=== PATIENT | female | born 1955 | race Caucasian/White ===

== ENCOUNTER 2020-03-27 09:47 | Emergency (ER) | payer BC, SELFPAY ==
--- NOTE | ~2020-03-27 | XR_ITS ---
EXAMINATION: XR wrist RT min 3V DATE: 03/27/2020 10:17 INDICATION: Right wrist pain. Fall. TECHNIQUE: 4 views of right wrist were obtained. COMPARISON: None. FINDINGS: There is a comminuted fracture of distal radius with involvement of the distal radioulnar j oint and likely involvement of the distal articular surface. The main distal fracture fragment demons trates impaction. There is 2 degrees palmar tilt of the distal articular surface. Ulnar styloid is in tact. Joint spaces are normal. IMPRESSION: 1. Comminuted fracture of distal radius. Reviewed, dictated and finalized at location A. CLOSURE HOME INSPECTOR
[2020-03-27 10:01] VITALS: BP 159/81; PULSE 74; RESP 16; TEMP 36.7; O2SAT 100
--- NOTE | 2020-03-27 10:12 | ED.GENADULT ---
HPI - General Adult General Chief complaint: Extremity Injury, Upper <Darell Soliman PA-C - Last Filed: 03/27/20 11:42> Stated complaint: wrist injury <Darell Soliman PA-C - Last Filed: 03/27/20 11:42> Time Seen by Provider: 03/27/20 10:05 <Darell Soliman PA-C - Last Filed: 03/27/20 11:42> Source: patient <Darell Soliman PA-C - Last Filed: 03/27/20 11:42> Mode of arrival: ambulatory <KAITLIN Vergara Last Filed: 03/27/20 11:42> Limitations: no limitations <KAITLIN Vergara Last Filed: 03/27/20 11:42> History of Present Illness HPI narrative: Patient presents with chief complaint of pain to the right wrist that she sustained approximately 1 hour prior to arrival when she was falling backwards out of her bed and put her arm behind her to catch herself. Patient reports pain and swelling to the radial aspect of her wrist with decreased range of motion. Patient denies any other injuries such as head impact, loss of consciousness, chest pain, back pain or any other areas of concern. Patient denies any prior fractures or injuries to the wrist. Patient denies any chronic medical conditions or daily medications. <Darell Soliman PA-C - Last Filed: 03/27/20 11:42> Related Data Home medications: Home Medications Medication Instructions Recorded Confirmed No Home Medications 03/27/20 03/27/20 <Darell Soliman PA-C - Last Filed: 03/27/20 11:42> Allergies/adverse reactions: Allergies Allergy/AdvReac Type Severity Reaction Status Date / Time Sulfa (Sulfonamide Allergy Unknown Vomiting Verified 03/27/20 10:09 Antibiotics) <Darell Soliman PA-C - Last Filed: 03/27/20 11:42> Review of Systems Review of Systems: Narrative: EYES: Denies visual changes, redness, or discharge. ENT: Denies rhinorrhea, congestion, sore throat, or otalgia. CARDIOVASCULAR: Denies chest pain, palpitations, or edema. RESPIRATORY: Denies cough or dyspnea. GASTROINTESTINAL: Denies abdominal pain, nausea, vomiting, or diarrhea. GENITOURINARY: Denies dysuria or hematuria. SKIN: Reports swelling denies erythema, ecchymosis rash or itching. MUSCULOSKELETAL: Reports right wrist pain denies back pain or myalgia. NEUROLOGIC: Denies headache, numbness, dizziness, or weakness. <Darell Soliman PA-C - Last Filed: 03/27/20 11:42> Exam Narrative: Exam Narrative: GENERAL: Well-appearing, well-nourished, and in no acute distress. HEAD: Normocephalic, No outward signs of trauma, abrasions or lacerations EYES: PERRLA and EOMI. NECK: Supple. No adenopathy or masses. Motion intact CHEST: Clear to auscultation. No respiratory distress. No wheezes rales or rhonchi HEART: Regular rate and rhythm. EXTREMITIES: Edema noted to the radial aspect of the right wrist. Decreased flexion extension and supination elicit pain. No open wounds or abrasions. Cap refill intact. No pain with palpation or range of motion proximally. No pain distally to hand. Sensation and range of motion intact to fingers. Residential Sales Associate strength intact. SKIN: Warm, dry, no rash. NEURO: No focal deficits. Alert and oriented x3. PSYCH: Normal mood and affect. <Darell Soliman PA-C - Last Filed: 03/27/20 11:42> Course Vital Signs Vital signs: Vital Signs Temperature 98.1 F 03/27/20 10:01 Pulse Rate 74 03/27/20 10:01 Respiratory Rate 16 03/27/20 10:01 Blood Pressure 159/81 H 03/27/20 10:01 Pulse Oximetry 100 03/27/20 10:01 Temperature 98.1 F 03/27/20 10:01 Pulse Rate 74 03/27/20 10:01 Respiratory Rate 16 03/27/20 10:01 Blood Pressure 159/81 H 03/27/20 10:01 Pulse Oximetry 100 03/27/20 10:01 <Darell Soliman PA-C - Last Filed: 03/27/20 11:42> Vital Signs Temperature 98.1 F 03/27/20 10:01 Pulse Rate 74 03/27/20 10:01 Respiratory Rate 16 03/27/20 10:01 Blood Pressure 159/81 H 03/27/20 10:01 Pulse Oximetry 100 03/27/20 10:01 Temperature 98.1 F 03/27/20 10:01
== END 2020-03-27 11:41 | disposition home or self-care (01) ==
PROVIDERS: Emergency Provider General Practice; PCP Internal Medicine
DX: S52.571A Other intraarticular fracture of lower end of right radius, initial encounter for closed fracture (principal); W06.XXXA Fall from bed, initial encounter
CPT/HCPCS: 29125; 73110; 99284; A4565

== ENCOUNTER 2020-04-09 09:49 | Outpatient (CLI) | payer BC, SELFPAY ==
--- NOTE | ~2020-04-09 | MM_ITS ---
EXAMINATION: MM screening torrie BI w giovana HISTORY: Screening mammogram TECHNIQUE: Craniocaudal and mediolateral oblique 3-D tomosynthesis images were obtained and synthetic 2-D images were generated. CAD analysis was submitted and interpreted. COMPARISON: 03/22/2019, 03/15/2018, 03/14/2017 bilateral digital screening mammogram examinations BREAST PARENCHYMAL COMPOSITION: The breasts are almost entirely fatty. FINDINGS: There is no evidence of suspicious mass, calcification, or architectural distortion to sugg est malignancy in either breast. There has been no suspicious interval change. IMPRESSION: 1. No mammographic evidence of malignancy. 2. Recommend routine screening mammography in one year. BI-RADS Category 1: Negative Reviewed, dictated and finalized at location A. SUPPORT ENGINEER
== END 2020-04-09 09:50 | disposition home or self-care (01) ==
LOC: ANHIMG 09:51
PROVIDERS: PCP Internal Medicine; Visit Provider Obstetrics & Gynecology
DX: Z12.31 Encounter for screening mammogram for malignant neoplasm of breast (principal)
CPT/HCPCS: 77063; 77067

== ENCOUNTER 2020-06-02 07:30 | Outpatient (RCR) | payer BC, SELFPAY ==
--- NOTE | 2020-05-19 08:46 | OTOPEVAL ---
OCCUPATIONAL THERAPY EVALUATION REPORT 05/19/20 Thank you for referring Aiyana Mcleod to [facility].? The patient is scheduled to be seen for therapy? 1x/week every 2 weeks for 2 visits total. Today she was instructed in AROM and will follow up in 2 weeks for progression to light resistive exercise. Please review, sign, date and return this plan of care MOODY. I agree with and certify that the following plan of care is medically necessary. Referring Physician Date Referring Provider: Eliezer Flores MD *OT Outpatient Evaluation Therapy Assessment Status Assessment Status Assessment Status Evaluation Outpatient Past Medical History Past Medical History No Past Medical/Surgical History Patient/Family Denies Significant Past Medical/ Surgical History Evaluation Information Problem Diagnosis (R) nondisplaced extra- articular distal radius fx Onset 03/27/20 Subjective Information Patient states the wrist was Query Text:As Reported By Patient/ treated conservatively. She Family has been weaning off her brace and has actually not been wearing it at all as of yesterday. She states she has been using her hand for all ADLs, laundry, cooking, and lifting as her arm allows. Prior Level of Function Activity Level (Last 3 Months) Hand Dominance Right Activity of Daily Living Ability Independent Indoor/Home Mobility Independent Cooking Yes Cleaning Yes Laundry Yes Shopping Yes Driving Yes Pain Assessment Timing of Pain Assessment Timing of Pain Assessment Assessment Pain Scale Pain Scale Used Numeric (1 - 10) Self Report Pain Assessment Right Wrist(s) Reported Pain Level 0 Lowest Pain Intensity 0 Greatest Pain Intensity 3 Pain Score Pain Score 0: Self Report Upper Extremity Range of Motion Scapular/ Shoulder Range of Motion Right Reason Not Measured WNL/Right Elbow/Forearm Range of Motion Right Forearm Supination - Active 75 Forearm Pronation - Active 80 Wrist Range of Motion Right Wrist Flexion - Active 60 Wrist Flexion - Passive 70 Wrist Extension - Active 60 Wrist Extension - Passive 70 Wrist Radial Deviation - Active 20 Wrist Ulnar Deviation - Active 35 Finger Range of Motion Right Reason Not Measured WNL/Right Thumb Range of Motion Right Reason Not Measured WNL/Right Hand Architectural Manager/Pinch Strength Assessment Hand Left
--- NOTE | 2020-06-02 08:24 | OTOPEVAL ---
OCCUPATIONAL THERAPY DISCHARGE NOTE 06/02/20 Aiyana presents for re-evaluation and progression of HEP. This week she is currently 10 weeks post DRF. She is independent with AROM, PROM, and resistive exercise as well as instruction in how to progress resistance over the next 2-3 weeks. No further skilled OT indicated at this time. Thank you for this referral. Thank you for referring Aiyana Mcleod to [facility].? Please review, sign, date and return this D/C Summary MOODY. I agree with and certify that the following plan of care is medically necessary. Referring Physician Date Referring Provider: Eliezer Flores MD *OT Outpatient Re-evaluation/Discharge Evaluation Information Problem Diagnosis (R) nondisplaced extra- articular distal radius fx Onset 03/27/20 Additional Evaluation Detail Aiyana presents after 2 weeks of completing AROM and PROM of the forearm and wrist as well as light resistive oil field roustabout strengthening. AROM has improved to normal limits. Today she was instructed in progression of forearm, wrist, and oil field roustabout strengthening and is independent with all materials. Subjective Information Patient states she is able to Query Text:As Reported By Patient/ complete all ADLs without Family difficulty. Reports weakness as her biggest limitation. Pain Assessment Timing of Pain Assessment Timing of Pain Assessment Re-assessment Pain Scale Pain Scale Used Numeric (1 - 10) Self Report Pain Assessment Right Wrist(s) Reported Pain Level 0 Lowest Pain Intensity 0 Greatest Pain Intensity 2 Pain Score Pain Score 0: Self Report Upper Extremity Range of Motion Elbow/Forearm Range of Motion Right Forearm Supination - Active 85 Forearm Pronation - Active 85 Wrist Range of Motion Right Wrist Flexion - Active 70 Wrist Flexion - Passive 80 Wrist Extension - Active 68 Wrist Extension - Passive 80 Wrist Radial Deviation - Active 30 Wrist Ulnar Deviation - Active 35 Finger Range of Motion Right Reason Not Measured WNL/Right Thumb Range of Motion Right Reason Not Measured WNL/Right Hand High Pressure Boiler Operator/Pinch Strength Assessment Hand Right High Pressure Boiler Operator Strength (lbs) 32.67 Upper Extremity Exercise Elbow/Forearm Exercise Right Elbow Flexion With red t-band 1x20 Query Text:Record Set, Reps, Resistance, Position. Elbow Extension With red t-band 1x20 Query Text:Record Set, Reps, Resistance, Po
== END 2020-06-02 10:29 | disposition home or self-care (01) ==
LOC: ANHOT 07:30
PROVIDERS: PCP Internal Medicine; Visit Provider Orthopaedic Surgery
DX: S52.501D Unspecified fracture of the lower end of right radius, subsequent encounter for closed fracture with routine healing (principal)
CPT/HCPCS: 97018; 97110; 97165

== ENCOUNTER 2021-02-04 13:38 | Outpatient (CLI) | payer BC, SELFPAY ==
--- NOTE | ~2021-02-04 | DEXA_ITS ---
Bone Density Report Name: Aiyana Mcleod Age: 65 Sex: Female Ethnicity: White Date of : 1955 Indication: postmenopausal; height loss; prior fracture; Referring Provider: NEFTALY, FREEDOM Terry Study: Bone densitometry was performed. Exam Date: February 04, 2021 Accession number: [id number] Bone Density: Region BMD T-score Z-score Classification AP Spine (L1, L2) 0.951 -0.3 1.4 Normal Femoral Neck (Left) 0.831 -0.2 1.3 Normal Total Hip (Left) 1.033 0.7 1.9 Normal Total Hip Bilateral Avg 0.997 0.4 1.6 Normal Femoral Neck (Right) 0.798 -0.5 1.0 Normal Total Hip (Right) 0.960 0.1 1.3 Normal World Health Organization criteria for BMD impression classify patients as: Normal (T-score at or above -1.0), Osteopenia (T-score between -1.0 and -2.5), or Osteoporosis (T-score at or below -2.5). 10-year Fracture Risk: FRAX not reported because: All T-scores for Spine Total, Hip Total, Femoral Neck at or above -1.0 Clinical Information Provided by Patient: Has had a low trauma fracture Has used the following medications: Vitamin D Patient maximum height was 62 Menopause Age: 50 Drinks caffeinated beverages Onset of menses at age 13 Number of children 2 Impression: The patient has normal bone mass. The patient has risk factors, including: previous fracture. Discussion: BONE DENSITY IS ABOVE THE MINIMUM DESIRABLE LEVEL AT ALL SKELETAL SITES TESTED. This patient?s bone mineral density is above the minimum desirable level (T-score -1.0 or better) at all sites measured. The patient should follow a healthful lifestyle (good nutrition with adequate calcium and vitamin D, and appropriate weight-bearing exercise). Follow-Up: Consider repeating this study in 5 years or sooner if there is some new clinical indication. Reported by: JAI on 02/04/2021 1:59:00 PM. Reviewed, dictated and finalized at location AChon [place]
== END 2021-02-04 13:39 | disposition home or self-care (01) ==
LOC: ANHIMG 13:41
PROVIDERS: PCP Internal Medicine; Visit Provider Internal Medicine
DX: Z13.820 Encounter for screening for osteoporosis (principal); M81.0 Age-related osteoporosis without current pathological fracture
CPT/HCPCS: 77080

== ENCOUNTER 2021-04-16 08:34 | Outpatient (CLI) | payer BC, SELFPAY ==
--- NOTE | ~2021-04-16 | MM_ITS ---
EXAMINATION: MM screening torrie BI w giovana HISTORY: Screening TECHNIQUE: Craniocaudal and mediolateral oblique 3-D tomosynthesis images were obtained and synthetic 2-D images were generated. CAD analysis was submitted and interpreted. COMPARISON: Comparison to multiple prior studies sequentially, with oldest reviewed study dated 12/2017. BREAST PARENCHYMAL COMPOSITION: Breast composed of scattered areas of fibroglandular density FINDINGS: There is no evidence of suspicious mass, calcification, or architectural distortion to sugg est malignancy in either breast. There has been no suspicious interval change. IMPRESSION: 1. No mammographic evidence of malignancy. 2. Recommend routine screening mammography in one year. BI-RADS Category 1: Negative Reviewed, dictated and finalized at location A. CH LANGUAGE PATHOLOGIST ASSISTANT
== END 2021-04-16 08:35 | disposition home or self-care (01) ==
LOC: ANHIMG 08:36
PROVIDERS: PCP Internal Medicine; Visit Provider Obstetrics & Gynecology
DX: Z12.31 Encounter for screening mammogram for malignant neoplasm of breast (principal)
CPT/HCPCS: 77063; 77067

== ENCOUNTER 2022-06-03 08:29 | Outpatient (CLI) | payer MEDICARE, OTHER, SELFPAY ==
--- NOTE | ~2022-06-03 | MM_ITS ---
EXAMINATION: MM screening torrie BI w giovana HISTORY: Screening TECHNIQUE: Craniocaudal and mediolateral oblique 3-D tomosynthesis images were obtained and synthetic 2-D images were generated. CAD analysis was submitted and interpreted. COMPARISON: Comparison to multiple prior studies sequentially, with oldest reviewed study dated 11/2016. BREAST PARENCHYMAL COMPOSITION: There are scattered areas of fibroglandular density. FINDINGS: There is no evidence of suspicious mass, calcification, or architectural distortion to sugg est malignancy in either breast. There has been no suspicious interval change. IMPRESSION: 1. No mammographic evidence of malignancy. 2. Recommend routine screening mammography in one year. BI-RADS Category 1: Negative Reviewed, dictated and finalized at location A. ULATOR
== END 2022-06-03 08:30 | disposition home or self-care (01) ==
LOC: ANHIMG 08:33
PROVIDERS: PCP Internal Medicine; Visit Provider Internal Medicine
DX: Z12.31 Encounter for screening mammogram for malignant neoplasm of breast (principal)
CPT/HCPCS: 77063; 77067

== ENCOUNTER 2023-07-24 09:37 | Outpatient (CLI) | payer MEDICARE, OTHER, SELFPAY ==
--- NOTE | ~2023-07-24 | MM_ITS ---
EXAMINATION: MM screening torrie BI w giovana HISTORY: Screening TECHNIQUE: Craniocaudal and mediolateral oblique 3-D tomosynthesis images were obtained and synthetic 2-D images were generated. CAD analysis was submitted and interpreted. COMPARISON: Comparison to multiple prior studies sequentially, with oldest reviewed study dated 11/2026. BREAST PARENCHYMAL COMPOSITION: Not dense: There are scattered areas of fibroglandular density. FINDINGS: There is no evidence of suspicious mass, calcification, or architectural distortion to sugg est malignancy in either breast. There has been no suspicious interval change. IMPRESSION: 1. No mammographic evidence of malignancy. 2. Recommend routine screening mammography in one year. BI-RADS Category 1: Negative Reviewed, dictated and finalized at location A.
== END 2023-07-24 09:38 | disposition home or self-care (01) ==
LOC: ANHIMG 09:43
PROVIDERS: PCP Internal Medicine; Visit Provider Obstetrics & Gynecology
DX: Z12.31 Encounter for screening mammogram for malignant neoplasm of breast (principal)
CPT/HCPCS: 77063; 77067

== ENCOUNTER 2023-11-01 06:26 | Emergency (ER) | payer MEDICARE, OTHER, SELFPAY ==
[2023-11-01] VITALS (9 sets, daily range): BP systolic 123–149; BP diastolic 64–80; PULSE 50–71; RESP 12–18; TEMP 36.5; O2SAT 93–100
--- NOTE | ~2023-11-01 | US_ITS ---
Limited Abdominal Sonogram: Real-time sonographic imaging of the right upper quadrant was performed. Clinical History: Right upper quadrant pain Findings: The liver appears mildly echogenic, with no evidence of mass lesion or bile duct dilatatio n. Main portal vein demonstrates normal direction of flow. The gallbladder is well distended, and dem onstrates probable small echogenic stone. The common bile duct measures 8 mm. The visualized pancrea s, aorta, and IVC are unremarkable. Impression: Probable fatty infiltration of liver. Probable small gallstone. Minimally prominent common bile duct, nonspecific. Reviewed, dictated and finalized at location . Impression: Probable fatty infiltration of liver. Probable small gallstone. Minimally prominent common bile duct, nonspecific.
--- NOTE | 2023-11-01 06:31 | ECG_ITS ---
Test Date: 2023-11-01 06:36:56 Measurements Intervals [place] Rate: 70 P: 59 OK: 175 QRS: 27 QRSD: 88 T: 30 QT: 394 QTc: 426 Interpretive Statements SINUS RHYTHM No previous ECG available for comparison Electronically Signed On 11-01-2023 11:53:38 CDT by Nathaly Albright M.D.
[2023-11-01] MEDS: KETOROLAC 30 MG/ML VIAL (*BKC) 15 MG IV PUSH (07:40)
[2023-11-01] MEDS: ONDANSETRON INJ 4 MG/2 ML VIAL IV PUSH (07:40)
[2023-11-01] MEDS: fentaNYL CITRATE INJ (*CRX) 100 MCG/2 ML VIAL 50 MCG IV PUSH (07:41)
[2023-11-01] MEDS: SODIUM CHLORIDE 0.9% IV 1,000 ML 999 ML IV CONT (07:42)
--- NOTE | 2023-11-01 07:42 | ED.ABDPAIN ---
HPI - Abdominal Pain General Chief Complaint: Abdominal Pain Stated Complaint: abd pain Time Seen by Provider: 11/01/23 07:12 History of Present Illness HPI narrative: Pt presents with epigastric and RUQ abdominal pain since last night. Pt had fish to eat and a few hours later developed pain and nausea. Pt denies fever or diarrhea. Pt still has her GB. Pt says she feels bloated. Related Data Allergies Allergy/AdvReac Type Severity Reaction Status Date / Time Sulfa (Sulfonamide AdvReac Unknown Vomiting Verified 11/01/23 07:21 Antibiotics) Review of Systems Review of Systems: All systems reviewed & are unremarkable except as noted in HPI and below PMFSH Past Medical History Medical History BMI 32.0-32.9,adult Nondisplaced fracture of distal end of right radius Surgical History Surgical History History of dilation and curettage 05/2006 History of loop electrical excision procedure (LEEP) 2008 Family History Family History Other Alzheimer disease Carcinoma of colon Lung cancer Social History Social History Smoking status: Never smoker Alcohol intake: current Alcohol use details: 2 xs a month Substance use: never Substance use type: does not use Lack of Transportation: No Lack of Food: Never True Current Housing: I Have Housing Concerned About Future Housing: No Difficulty Paying Gas/Electric Bills: No Difficulty Paying for Meds: No Currently Unemployed: No Education: High School Diploma/GED Difficulty w/ Childcare or Family Care: No Living arrangements: with family Occupation/Education: retired Gender identity (if verbalized by the patient): Female Sexual Orientation (if Verbalized by the Patient): Straight or Heterosexual Exam Const: General: healthy appearing and no acute distress Nutritional Appearance: well nourished Orientation/consciousness: patient oriented x3 Limitations: no limitations Chest: Chest palpation & inspection: normal inspection of the chest Resp: Effort & Inspection: normal respiratory effort Auscultation: clear to auscultation bilaterally Cardio: Rate: regular rate Rhythm: regular rhythm GI: GI Palp: Yes Soft to palpation and Yes Tenderness to palpation present (GI) (epigastrum and RUQ) Auscultation: normal bowel sounds Back/Spine/Pelvis: Back: no CVA tenderness Skin: General skin exam: normal color Rashes: no rashes Wounds: no wounds Neuro: General: patient oriented x3, moves all extremities, no meningeal signs and no focal motor deficits Speech: normal speech Extrem: General: normal to inspection and no clubbing, cyanosis or edema Psych: Mental Status: mental status grossly normal Affect: normal affect Attitude: cooperative Course Vital Signs Vital signs: Vital Signs Temperature 97.7 F 11/01/23 06:32 Pulse Rate 71 11/01/23 06:32 Respiratory Rate 18 11/01/23 06:32 Blood Pressure 149/80 H 11/01/23 06:32 Pulse Oximetry 100 11/01/23 06:32 Oxygen Delivery Room Air 11/01/23 06:32 Temperature 97.7 F 11/01/23 06:32 Pulse Rate 63 11/01/23 09:15 Respiratory Rate 12 11/01/23 09:15 Blood Pressure 123/64 11/01/23 09:01 Pulse Oximetry 97 11/01/23 09:15 Oxygen Delivery Room Air 11/01/23 06:32 MDM - Abdominal Pain MDM Narrative Medical decision making narrative: Pt presents with epigastic and RUQ abd pain since last night. Could be GB or pancreatitis along with many other possiblilites. will start iwth labs and RUQ sono and will treat pain and nausea. LFTs and lipase fine, slight wbc elevation. Sono shows stone in gb but no wall thickening noted and CBD 8mm. discussed with Dr Campos and will see pt i follow up. Pt would prefer going home on meds and follow up.
[2023-11-01 07:45] LABS: Basophils Percent Auto 0.4 % (0.2-1.2); Eosinophils Percent Auto 0.2 % (0-4.4); Hematocrit 41.4 % (37.0-47.0); Hemoglobin 12.8 g/dL (12.0-15.0); Immature Granulocyte Absolute 0.05 K/mm3 (0.00-0.031); Immature Granulocyte Percent A 0.5 % (0-0.5); Lymphocytes Absolute Auto 1.14 K/mm3 (0.9-3.2); Lymphocytes Percent Auto 11.1 % (18.3-44.2); Mean Corpuscular HGB Conc 30.9 g/dl (32-36); Mean Corpuscular Hemoglobin 27.3 pg (26-34); Mean Corpuscular Volume 88.3 fl (80-100); Mean Platelet Volume 9.4 fl (7.4-10.4); Monocytes Absolute Auto 0.7 K/mm3 (0.1-0.6); Monocytes Percent Auto 7.1 % (2.6-8.5); Neutrophils Absolute Auto 8.3 K/mm3 (1.3-6.7); Neutrophils Percent Auto 80.7 % (45.5-73.1); Platelet Count Result 298 k/mm3 (150-375); Red Blood Count 4.69 M/mm3 (4.2-5.4); Red Cell Distribution Width 15.4 % (11.5-14.5); White Blood Count 10.3 K/mm3 (4.5-10.0)
[2023-11-01 07:56] LABS: Alanine Aminotransferase 19 U/L (6-35); Albumin Level 4.3 g/dL (3.5-5.1); Alkaline Phosphatase 72 U/L (38-126); Anion Gap 8 mmol/L (4-12); Aspartate Amino Transferase 19 U/L (14-36); Blood Urea Nitrogen 18 mg/dL (7-17); Calcium 9.8 mg/dL (8.4-10.2); Carbon Dioxide 25 mmol/L (22-30); Chloride 106 mmol/L (98-107); Estimated CRCL calculation 50 ml/min; Estimated Glomerular Filt Rate > 60; Glucose 106 mg/dL (65-110); Lipase 185 U/L (23-300); Potassium 3.8 mmol/L (3.4-5.0); Sodium 139 mmol/L (137-145)
[2023-11-01 09:20] LABS: Appearance Urine Cloudy (Clear); Bacteria Urine 1+ /hpf; Bilirubin Urine Negative (Negative); Blood Urine Negative (Negative); Color Urine Yellow (Yellow); Glucose Urine UA Negative (Negative); Ketones Urine Negative (Negative); Leukocyte Esterase Ur 2+ LEU/UL (Negative); Nitrate Urine Negative (Negative); Non Pathogenic Casts 0-2; Protein Urine Negative (Negative); RBC Urine 0-2 /hpf (0-2); Specific Grav Ur 1.017 (1.001-1.035); Squamous Epithelial Cell Urine Few /hpf (Few); Urobilinogen Urine 0.2 mg/dL (<2.0); pH Urine 8.5 (5.0-9.0)
[2023-11-01 09:58] LABS: Add Urine Microscopic? YES
== END 2023-11-01 09:56 | disposition home or self-care (01) ==
PROVIDERS: Student in an Organized Health Care Education/Training Program; Emergency Provider Emergency Medicine; PCP Internal Medicine
DX: K80.20 Calculus of gallbladder without cholecystitis without obstruction (principal); Z79.52 Long term (current) use of systemic steroids
CPT/HCPCS: 36415; 76705; 80053; 81001; 83690; 85025; 87086; 93005; 96361; 96374; 96375; 99284; J1885; J2405; J3010; J7030

== ENCOUNTER 2023-11-21 10:11 | Outpatient (CLI) | payer MEDICARE, OTHER, SELFPAY ==
[2023-11-21 10:55] LABS: Alanine Aminotransferase 22 U/L (6-35); Albumin Level 4.4 g/dL (3.5-5.1); Alkaline Phosphatase 64 U/L (38-126); Amylase 64 U/L (30-110); Aspartate Amino Transferase 23 U/L (14-36); Bilirubin,Total 0.7 mg/dL (0.2-1.3)
== END 2023-11-21 10:12 | disposition home or self-care (01) ==
LOC: ANHSURGERY 10:17
PROVIDERS: PCP Internal Medicine; Visit Provider Surgery
DX: K81.1 Chronic cholecystitis (principal); Z01.818 Encounter for other preprocedural examination
CPT/HCPCS: 36415; 80076; 82150

== ENCOUNTER 2023-11-23 01:31 | Day surgery (SDC) | payer MEDICARE, OTHER, SELFPAY ==
--- NOTE | 2023-11-20 15:30 | PC.NURSE ---
Report to the Outpatient Waiting Room, entrance under the green pavilion located off [facility], at time on date . Planned Procedure Time: . Time changes happen often and if your time is changed the preop area will call you the afternoon before. - You and your visitor will be asked to self-screen and do not enter if you have any COVID symptoms. - A mask is optional within the hospital at this time. Patients may have clear liquids (water, carbonated beverages, clear teas, apple juice) until 3 hours prior to surgery with a maximum of 20 ounces. - No food from midnight until time of surgery - Infants may have breast milk until 4 hours before surgery, infant formula 6 hours prior to surgery. - Children will be allowed to drink immediately following surgery. If applicable, please bring a bottle or sippy cup to assist with drinking. Juice, water, soda, and popsicles are readily available. For infants on formula, please bring formula the day of surgery. Pacifiers are allowed. Take the following medications with a SIP of water the morning of surgery: DO NOT STOP ANY OF YOUR OTHER PRESCRIPTION MEDICATIONS PRIOR TO SURGERY ?EXCEPT THE FOLLOWING Medications to discontinue per physician Date to take last dose Please no make-up, nail turkish, hairspray, perfume, deodorant, or body powder the day of surgery. No jewelry (including any body piercings) or valuables the day of surgery, leave them at home. Please take a shower or bath the night before, or the morning of, surgery with an antibacterial soap. Wear comfortable, loose fitting clothing. Children are encouraged to wear pajamas. - Jewelry must be removed prior to entering the operating room. Rings and piercings that are not removed may be cut off. - The hospital will not accept responsibility for valuables. - Please leave all valuables, including medications, at home the day of surgery. If you are going home after surgery, a licensed reach lift truck driver must drive you home. - NO public transportation without another adult if you receive anesthesia. - We recommend that an adult stay with you for 24 hours following discharge. - We also recommend that you do not drive, make important decision, drink alcoholic beverages, or take any drugs that were not prescribed by your health care provider for at least 24 hours after your discharge time. For Pediatric surgeries, we recommend two adults accompany the child home. Follow any additional instructions given to you from your surgeon. If you or anyone in your household have experienced Covid symptoms in the past week, please notify your surgeon or the nurse liaison at the phone number below for possible testing. Telephone instructions given to and asked if any additional questions and then verbalized understanding. Patient advised to call surgeon office or pre surgery nurse liaison [phone] if any additional questions.
--- NOTE | 2023-11-20 15:30 | PC.NURSE ---
Report to the Outpatient Waiting Room, entrance under the green pavilion located off [facility], at time _0700_ on date _11/23/23 _. Planned Procedure Time: _0900_. Time changes happen often and if your time is changed the preop area will call you the afternoon before. - You and your visitor will be asked to self-screen and do not enter if you have any COVID symptoms. - A mask is optional within the hospital at this time. Patients may have clear liquids (water, carbonated beverages, clear teas, apple juice) until 3 hours prior to surgery with a maximum of 20 ounces. - No food from midnight until time of surgery - Infants may have breast milk until 4 hours before surgery, formula 6 hours prior to surgery. - Children will be allowed to drink immediately following surgery. If applicable, please bring a bottle or sippy cup to assist with drinking. Juice, water, soda, and popsicles are readily available. For infants on formula, please bring formula the day of surgery. Pacifiers are allowed. Take the following medications with a SIP of water the morning of surgery: _PAIN OR NAUSEA MEDICATION IF NEEDED DO NOT STOP ANY OF YOUR OTHER PRESCRIPTION MEDICATIONS PRIOR TO SURGERY ?EXCEPT THE FOLLOWING Medications to discontinue per physician NONE Date to take last dose Please no make-up, nail maltese, hairspray, perfume, deodorant, or body powder the day of surgery. No jewelry (including any body piercings) or valuables the day of surgery, leave them at home. Please take a shower or bath the night before, or the morning of, surgery with HIBICLENS antibacterial soap. Wear comfortable, loose fitting clothing. Children are encouraged to wear pajamas. - Jewelry must be removed prior to entering the operating room. Rings and piercings that are not removed may be cut off. - The hospital will not accept responsibility for valuables. - Please leave all valuables, including medications, at home the day of surgery. If you are going home after surgery, a licensed pick up driver must drive you home. - NO public transportation without another adult if you receive anesthesia. - We recommend that an adult stay with you for 24 hours following discharge. - We also recommend that you do not drive, make important decision, drink alcoholic beverages, or take any drugs that were not prescribed by your health care provider for at least 24 hours after your discharge time. For Pediatric surgeries, we recommend two adults accompany the child home. Follow any additional instructions given to you from your surgeon. If you or anyone in your household have experienced Covid symptoms in the past week, please notify your surgeon or the nurse liaison at the phone number below for possible testing. Telephone instructions given to _PATIENT__and asked if any additional questions and then verbalized understanding. Patient advised to call surgeon office or pre surgery nurse liaison [phone] if any additional questions.
[2023-11-20 15:39] VITALS: BMI 31.6
[2023-11-23] VITALS (9 sets, daily range): BP systolic 117–150; BP diastolic 59–68; PULSE 54–67; RESP 12–20; TEMP 36.2–37.3; O2SAT 96–100
--- NOTE | 2023-11-23 07:25 | WPDHPUPDATE1 ---
History and Physical Update Update Date/Time: 11/23/23 07:25 History and Physical has been reviewed, including an updated exam of the patient. There are NO changes in the patient's condition. Risks, benefits, and alternatives have been discussed and questions answered. Patient agrees to proceed with procedure.
[2023-11-23] MEDS: ACETAMINOPHEN 500 MG TABLET 1000 MG PO (08:13)
[2023-11-23] MEDS: LACTATED RINGERS 1,000 ML 30 ML IV CONT ×2 (08:25→11:00)
[2023-11-23] MEDS: KETOROLAC 15 MG/ML VIAL (*BKC) IV PUSH (08:29)
--- NOTE | 2023-11-23 08:37 | WPDANESEPPF ---
Anes - Initial Pre Proc Eval Procedure: Operation Date: 11/23/23 09:00 Proposed Procedures p Laparoscopic Cholecystectomy - Rosamaria Campos MD Date/Time: 11/23/23 08:37 Surgeon: Rosamaria Campos MD Pre Op Diagnosis: chronic cholecystitis Patient Data Age: 68 Gender: F Height: 1.55 m Weight: 72.7 kg Last Vital Signs Temp 99.2 F 11/23/23 07:43 Pulse 67 11/23/23 07:43 Resp 20 11/23/23 07:43 BP 117/68 11/23/23 07:43 Pulse Ox 98 11/23/23 07:43 O2 Del Method Room Air 11/23/23 07:43 Allergies Allergy/AdvReac Type Severity Reaction Status Date / Time Sulfa (Sulfonamide AdvReac Unknown Nausea/rash Verified 11/23/23 08:10 Antibiotics) Home Medications Medication Instructions Recorded Confirmed Type nitrofurantoin 100 mg PO .COMPLEX #60 caps 03/16/23 11/23/23 Rx monohydrate/macrocrystals 100 mg capsule (Macrobid) hydrocodone 5 mg-acetaminophen 325 1 tablet PO Q6H PRN pain #14 tabs 11/01/23 11/23/23 Rx mg tablet ondansetron 4 mg disintegrating 4 mg PO Q8H PRN nausea and 11/01/23 11/23/23 Rx tablet vomiting #10 tabs Patient hx anesthesia problems: none Family hx anesthesia problems: none Results Review: All pre-operative results and documents have been reviewed as part of the pre-operative evaluation. [facility] Past Medical History Medical History BMI 32.0-32.9,adult Nondisplaced fracture of distal end of right radius Surgical History Surgical History History of dilation and curettage 05/2006 History of loop electrical excision procedure (LEEP) 2008 Family History Family History Other Alzheimer disease Carcinoma of colon Lung cancer Social History Social History Smoking status: Never smoker Alcohol intake: current Alcohol use details: 2 PER MONTH Substance use: never Substance use type: does not use Lack of Transportation: No Lack of Food: Never True Current Housing: I Have Housing Concerned About Future Housing: No Difficulty Paying Gas/Electric Bills: No Difficulty Paying for Meds: No Currently Unemployed: No Education: High School Diploma/GED Difficulty w/ Childcare or Family Care: No Living arrangements: with family Occupation/Education: retired Gender identity (if verbalized by the patient): Female Sexual Orientation (if Verbalized by the Patient): Straight or Heterosexual Anes - Eval Final PreProcedure Day of Procedure 11/23/23 08:37 Patient weight: normal Heart: regular rate and rhythm Lungs: clear to auscultation Airway: Mallampati scale class II Neurological: alert and oriented Last oral intake: >/= 8 hours ASA classification: II Emergent: no Anesthetic plan: proceed Anesthesia type and monitoring: general ETT and standard monitoring Results Review: All pre-operative results and documents have been reviewed as part of the pre-operative evaluation. Informed Consent: The patient's anesthetic plan and its attendant risks and benefits were discussed with the patient/family/POA. Questions were solicited and answers provided to the satisfaction of the patient/family/POA.
[2023-11-23] MEDS: ceFAZolin 2 GM/D5W 50 ML 2 GM/50 ML BAG IVPB (08:48)
[2023-11-23] MEDS: BUPIVACAINE/EPINEPHRINE 0.5% 10 ML VIAL 30 ML INFILTRATE (09:06)
--- NOTE | 2023-11-23 09:29 | W.PM.PROC2 ---
Procedure Note - Detailed Date of Procedure 11/23/23 Pre-op Diagnosis chronic cholecystitis Post-op Diagnosis Same Procedure Performed Laparoscopic cholecystectomy Surgeon Rosamaria Campos MD Anesthesia General Indications 68-year-old female presented to the office complaining of postprandial right upper quadrant abdominal pain associated with bloating and nausea. Workup including imaging significant for chronic cholecystitis, cholelithiasis. Findings moderate cholecystitis Description of Procedure The patient was taken to the operating room placed in the supine position. After adequate induction of general anesthesia, the patient was prepped and draped in normal sterile fashion. A time-out was then performed to verify the patient's identity as well as the procedure being performed. I then made a 5 mm incision in the infraumbilical region. Through this, a Veress needle was placed into the peritoneal cavity and CO2 gas was then insufflated. After adequate pneumoperitoneum was achieved, the Veress needle was removed and a 5 mm optiview trocar was placed through this incision under direct visualization. I then placed the laparoscope through this trocar site and under direct visualization placed a further 12 mm subxiphoid port as well as 2 additional 5 mm ports in the right upper abdomen. The gallbladder was then identified and was noted to be moderately inflamed and distended. I was able to place a grasper at the dome of the gallbladder and this was retracted anterior and cephalad up over the liver. A 2nd retractor was then placed at the infundibulum and retracted laterally, this allowed visualization of the triangle of Calot. I then was able to visualize the cystic duct in its entirety from its proximal insertion into the gallbladder, to its distal junction with the common hepatic/common bile duct junction. At this point, I carefully skeletonized the proximal cystic duct with the [place] dissector. I then clipped and transected the proximal cystic duct. Next I visualized the cystic artery. Again the artery was skeletonized, clipped, and transected. I then used the Bovie cautery to take down the peritoneal attachments of the gallbladder off the liver bed. Once the gallbladder specimen was completely detached, an endo-pouch was placed through the 12 mm port site. I then placed the gallbladder specimen into the Endo pouch and removed the endo-pouch from the 12 mm port site. The specimen will now be sent to pathology for further review. I then copiously irrigated the right upper quadrant. Hemostasis was noted in the liver bed, the clips were noted to be in good position on both the cystic duct stump and the cystic artery stump. No other pathology was noted in the right upper quadrant. I then moved the laparoscope to the subxiphoid port. No iatrogenic injury or other pathology was noted in the lower abdomen. I then closed the 12 mm trocar site under direct visualization using the Chapin cone and 0 Vicryl suture. At this point, the abdomen was desufflated and all ports removed. All port sites were then closed with 4.O Monocryl subcuticular sutures. Dermabond was placed on each incision. The patient tolerated the procedure well, was extubated in the operating room postoperative and will be transferred to the recovery room in stable condition Estimated Blood Loss 5 Drains No Packing No Pathology Yes Complications No immediate complications Condition Stable Disposition PACU [facility] Billing Surgery - Charge Forward: Surgery Billing
[2023-11-23] MEDS: ONDANSETRON INJ 4 MG/2 ML VIAL IV PUSH (11:00)
== END 2023-11-23 11:33 | disposition home or self-care (01) ==
PROVIDERS: PCP Internal Medicine; Visit Provider Surgery
PROC: 0FT44ZZ Resection of Gallbladder, Percutaneous Endoscopic Approach (ICD-10-PCS; CPT 47562; principal; 2023-11-23 09:00)
DX: K81.1 Chronic cholecystitis (principal)
CPT/HCPCS: 47562; 88304; A9270; J0690; J1100; J1200; J1885; J2250; J2405; J2704; J3010; J7030; J7120

== ENCOUNTER 2024-09-27 08:55 | Outpatient (CLI) | payer MEDICARE, OTHER, SELFPAY ==
--- NOTE | ~2024-09-27 | MM_ITS ---
EXAMINATION: MM screening torrie BI w giovana HISTORY: Screening TECHNIQUE: Craniocaudal and mediolateral oblique 3-D tomosynthesis images were obtained and synthetic 2-D images were generated. CAD analysis was submitted and interpreted. COMPARISON: Comparison to multiple prior studies sequentially, with oldest reviewed study dated 12/2017. BREAST PARENCHYMAL COMPOSITION: Not dense: There are scattered areas of fibroglandular density. FINDINGS: There is no evidence of suspicious mass, calcification, or architectural distortion to sugg est malignancy in either breast. There has been no suspicious interval change. IMPRESSION: 1. No mammographic evidence of malignancy. 2. Recommend routine screening mammography in one year. BI-RADS Category 1: Negative Reviewed, dictated and finalized at location []
--- OUTSIDE RECORDS SUMMARY | 2024-09-27 09:01 | XMS_ITS | Data Portability ---
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 Plan of Treatment Reminders Order Date Submit Date Provider Last Modified By Organization Details Last Modified Time Details Appointments None recorded. Lab vitamin D, 25-hydrox y, total, serum 025 025 [facility] - Outpatient Lab, [address] [place], [address], 5 04:09:27 lipid panel, serum 025 025 [facility] Outpatient Lab, [address] [place], [address], 5 04:09:22 CMP, serum or plasma 025 025 [facility] Outpatient Lab, [address] [place], [address], 5 04:09:23 CBC w/ auto diff 025 025 [facility] Outpatient Lab, [address] [place], [address], 5 04:09:25 CMP, serum or plasma [address] - Outpatient Lab, [address] [place], [address], 5 12:22:28 vitamin B12, serum 025 025 [facility] Outpatient Lab, [address] [place], [address], 5 04:09:26 TSH + free T4, serum [email or web address] - Outpatient Lab, [address] [place], [address], 5 12:22:29 Referral None recorded. Procedures cerumen removal (PROC) [email or web address] Not available 4 10:31:27 cerumen removal (PROC) [email or web address] Not available 4 15:34:41 Surgeries None recorded. Imaging None recorded. Medication Orders Debrox 6.5 % ear drops [email or web address] [id number] [facility], [address] [place], [address], 5 11:53:48 Patient TargetsNo targets recorded. Patient Instructions Encounter Date Encounter Id Patient Instructions Last Modified By Organization Details Last Modified Time 06/12/2023 [id number] Follow-up for history of diverticulitis -obesity class one. Did have blood work performed back in December of last year which looked adequate. No need for any additional blood work at this time. Will continue on current Rx follow-up in six months. Portions of the record may have been created with voice recognition software. Occasional wrong-word or vpcgg-m-[id number] substitutions may have occurred due to the inherent limitations of voice recognition software. Read the chart carefully and recognize, using context, where substitutions have occurred. [email or web address] Not available 06/12/2023 12:00:55 12/11/2023 [id number] History of cholecystitis cholelithiasis valve, diverticulitis by history stable and obesity class one. All clinically stable. Has had blood done recently. Currently is doing well otherwise. Will continue on current Rx and follow-up in six months. Next Appointment: 6 Months Approximate Date: 06/08/2024 Portions of the record may have been created with voice recognition software. Occasional wrong-word or nylcg-x-[id number] substitutions may have occurred due to the inherent limitations of voice recognition software. Read the chart carefully and recognize, using context, where substitutions have occurred. [email or web address] Not available 12/11/2023 11:53:38 03/05/2024 [id number] patient will follow-up in 1 week for cerumen removal of the right auditory canal [email or web address] Not available 03/05/2024 11:18:19 03/21/2024 [id number] discussed weekly use of Debrox for cerumen softening maintenance. [email or web address] Not available 03/21/2024 15:56:14 06/10/2024 [id number] Follow-up for history of diverticulitis, renal calculi and obesity class one. Will check blood work consisting of CBC, CMP, lipid, thyroid and vitamin-D level. Does need a bone density scan, mammogram. Continue on current Rx follow-up in six months Additional Orders - Directives - Recommendations 1. Mammogram 2. Bone density scan Follow Up: 6 Months Approximate Date: 12/07/2024 Portions of record are template driven. When necessary additional context will be provided. Additionally some portions have been created with voice recognition software. Occasional wrong-word or nzbof-w-uvtn substitutions may have occurred due to the inherent limitations of voice recognition software. Read the chart carefully and recognize, using context, where substitutions may have occurred. Created: Freedom Frias M.D. 06.10.2024 11:17 AM [email or web address] Not available 06/10/2024 12:17:05 Reason for Referral None Reported. Results Created Date Observation Date Name Description Value Unit Range Abnormal Flag Note LastModifiedBy Organization Detail LastModifiedTime 06/21/1906/22/2024 LIPID PANEL , STAND SHONDA cholesterol, total 186 mg/dL <200 normal Not Available [facility] [address] [place], [address], 06/22/2024 04:09:22 06/21/1906/22/2024 LIPID PANEL , STAND SHONDA HDL cholesterol 42 mg/dL > or = 50 low Not Available [facility] [address] [place], [address], 06/22/2024 04:09:22 06/21/1906/22/2024 LIPID PANEL , STAND SHONDA triglyceride s 91 mg/dL <150 normal Not Available [address], [address], 06/22/2024 04:09:22 06/21/1906/22/2024 LIPID PANEL , STAND SHONDA LDL-choleste rol 125 mg/dL _(tamiko c) high Refer ence range : <100 Kalie able range <100 mg/dL for prima ry preve ntion ; <70 mg/dL for patie nts with CHD or diabe tic patie nts with > or = 2 CHD risk facto rs. LDL-C is now calcu lated using the Una n-Hop kins calcu jack n, which is a valid ated novel metho d provi ding germain r accur acy than the Fried ping equat ion in the estim ation of LDL-C . Una eduardo SS et al. JESSICA. 2013; 310(1 9): 2061- 2068 (http ://ed ucati on.Qu estMis Descuentos. com/f aq/FA Q164) Not Available [address], [address], 06/22/2024 04:09:22 06/21/1906/22/2024 LIPID PANEL , STAND SHONDA chol/HDLC ratio 4.4 (calc ) <5.0 normal Not Available [address], [address], 06/22/2024 04:09:22 06/21/1906/22/2024 LIPID PANEL , STAND SHONDA non HDL cholesterol 144 mg/dL _(tamiko c) <130 high For patie nts with diabe julien plus 1 major ASCVD risk facto r, treat ing to a non-H DL-C goal of <100 mg/dL (LDL- C of <70 mg/dL ) is consi dered a thera pechemoi c optio n. Not Available [facility] [address] [place] [address], [address], 06/22/2024 04:09:22 06/21/19 25 06/22/2024 COMPR EHENS WANDA METAB OLIC PANEL glucose 86 mg/dL 65-99 normal Fasti ng refer ence inter jovi Not Available [address], [address], 06/22/2024 04:09:23 06/21/1906/22/2024 COMPR EHENS WANDA METAB OLIC PANEL urea nitrogen (BUN) 15 mg/dL 7-25 normal Not Available [address], [address], 06/22/2024 04:09:23 06/21/19 25 06/22/2024 COMPR EHENS WANDA METAB OLIC PANEL creatinine 0.86 mg/dL 0.50-1 .05 normal Not Available [address], [address], 06/22/2024 04:09:23 06/21/1906/22/2024 COMPR EHENS WANDA METAB OLIC PANEL eGFR 74 mL/mi n/1.7 3m2 > or = 60 normal Not Available [address], [address], 06/22/2024 04:09:23 06/21/1906/22/2024 COMPR EHENS WANDA METAB OLIC PANEL BUN/creatini ne ratio SEE NOTE: (calc ) 6-22 Not Repor viktoria: BUN and Creat inine are withi n refer ence range . Not Available [address], [address], 06/22/2024 04:09:23 06/21/19 25 06/22/2024 COMPR EHENS WANDA METAB OLIC PANEL sodium 140 mmol/ L 135-14 6 normal Not Available [address], [address], 06/22/2024 04:09:23 06/21/19 25 06/22/2024 COMPR EHENS WANDA METAB OLIC PANEL potassium 4.0 mmol/ L 3.5-5. 3 normal Not Available [address], [address], 06/22/2024 04:09:23 06/21/19 25 06/22/2024 COMPR EHENS WANDA METAB OLIC PANEL chloride 104 mmol/ L 98-110 normal Not Available [address], [address], 06/22/2024 04:09:23 06/21/19 25 06/22/2024 COMPR EHENS WANDA METAB OLIC PANEL carbon dioxide 29 mmol/ L 20-32 normal Not Available [address], [address], 06/22/2024 04:09:23 06/21/19 25 06/22/2024 COMPR EHENS WANDA METAB OLIC PANEL calcium 10.2 mg/dL 8.6-10 .4 normal Not Available [address], [address], 06/22/2024 04:09:23 06/21/19 25 06/22/2024 COMPR EHENS WANDA METAB OLIC PANEL protein, total 6.4 g/dL 6.1-8. 1 normal Not Available [address], [address], 06/22/2024 04:09:23 06/21/19 25 06/22/2024 COMPR EHENS WANDA METAB OLIC PANEL albumin 4.2 g/dL 3.6-5. 1 normal Not Available [address], [address], 06/22/2024 04:09:23 06/21/19 25 06/22/2024 COMPR EHENS WANDA METAB OLIC PANEL globulin 2.2 g/dL_ (calc ) 1.9-3. 7 normal Not Available [address], [address], 06/22/2024 04:09:23 06/21/19 25 06/22/2024 COMPR EHENS WANDA METAB OLIC PANEL albumin/glob ulin ratio 1.9 (calc ) 1.0-2. 5 normal Not Available [address], [address], 06/22/2024 04:09:23 06/21/19 25 06/22/2024 COMPR EHENS WANDA METAB OLIC PANEL bilirubin, total 0.7 mg/dL 0.2-1. 2 normal Not Available [address], [address], 06/22/2024 04:09:23 06/21/19 25 06/22/2024 COMPR EHENS WANDA METAB OLIC PANEL alkaline phosphatase 57 U/L 37-153 normal Not Available [address], [address], 06/22/2024 04:09:23 06/21/19 25 06/22/2024 COMPR EHENS WANDA METAB OLIC PANEL AST 14 U/L 10-35 normal Not Available [address], [address], 06/22/2024 04:09:23 06/21/19 25 06/22/2024 COMPR EHENS WANDA METAB OLIC PANEL ALT 15 U/L 6-29 normal Not Available [address], [address], 06/22/2024 04:09:23 06/21/19 25 06/22/2024 CBC (INCL UDES DIFF/ PLT) white blood cell count 3.7 thous and/u L 3.8-10 .8 low Not Available [address], [address], 06/22/2024 04:09:25 06/21/1906/22/2024 CBC (INCL UDES DIFF/ PLT) red blood cell count 4.52 rupal on/uL 3.80-5 .10 normal Not Available [address], [address], 06/22/2024 04:09:25 06/21/1906/22/2024 CBC (INCL UDES DIFF/ PLT) hemoglobin 13.8 g/dL 11.7-1 5.5 normal Not Available [address], [address], 06/22/2024 04:09:25 06/21/1906/22/2024 CBC (INCL UDES DIFF/ PLT) hematocrit 42.6 % 35.0-4 5.0 normal Not Available [address], [address], 06/22/2024 04:09:25 06/21/1906/22/2024 CBC (INCL UDES DIFF/ PLT) MCV 94.2 fL 80.0-1 00.0 normal Not Available [address], [address], 06/22/2024 04:09:25 06/21/1906/22/2024 CBC (INCL UDES DIFF/ PLT) MCH 30.5 pg 27.0-3 3.0 normal Not Available [address], [address], 06/22/2024 04:09:25 06/21/1906/22/2024 CBC (INCL UDES DIFF/ PLT) MCHC 32.4 g/dL 32.0-3 6.0 normal For adult s, a sligh t decre ase in the calcu lated MCHC value (in the range of 30 to 32 g/dL) is most likel y not clini claire signi david t; cuauhtemoc er, it shoul d be inter prete d with cauti on in [facility] n with other red cell hans eters and the patie nt's clini tamiko condi tion. Not Available [address], [address], 06/22/2024 04:09:25 06/21/1906/22/2024 CBC (INCL UDES DIFF/ PLT) RDW 12.5 % 11.0-1 5.0 normal Not Available [address], [address], 06/22/2024 04:09:25 06/21/1906/22/2024 CBC (INCL UDES DIFF/ PLT) platelet count 259 thous and/u L 140-40 0 normal Not Available [address], [address], 06/22/2024 04:09:25 06/21/1906/22/2024 CBC (INCL UDES DIFF/ PLT) MPV 9.9 fL 7.5-12 .5 normal Not Available [address], [address], 06/22/2024 04:09:25 06/21/1906/22/2024 CBC (INCL UDES DIFF/ PLT) absolute neutrophils 1850 cells /uL 1500-7 800 normal Not Available [address], [address], 06/22/2024 04:09:25 06/21/1906/22/2024 CBC (INCL UDES DIFF/ PLT) absolute lymphocytes 1421 cells /uL 850-39 00 normal Not Available [address], [address], 06/22/2024 04:09:25 06/21/1906/22/2024 CBC (INCL UDES DIFF/ PLT) absolute monocytes 307 cells /uL 200-95 0 normal Not Available [address] [place], [address], 06/22/2024 04:09:25 06/21/1906/22/2024 CBC (INCL UDES DIFF/ PLT) absolute eosinophils 81 cells /uL 15-500 normal Not Available [facility] [address], [address], 06/22/2024 04:09:25 06/21/1906/22/2024 CBC (INCL UDES DIFF/ PLT) absolute basophils 41 cells /uL 0-200 normal Not Available [facility] [address], [address], 06/22/2024 04:09:25 06/21/1906/22/2024 CBC (INCL UDES DIFF/ PLT) neutrophils 50 % normal Not Available [facility] [address], [address], 06/22/2024 04:09:25 06/21/1906/22/2024 CBC (INCL UDES DIFF/ PLT) lymphocytes 38.4 % normal Not Available [facility] [address], [address], 06/22/2024 04:09:25 06/21/1906/22/2024 CBC (INCL UDES DIFF/ PLT) monocytes 8.3 % normal Not Available [facility] [address], [address], 06/22/2024 04:09:25 06/21/1906/22/2024 CBC (INCL UDES DIFF/ PLT) eosinophils 2.2 % normal Not Available [facility] [address], [address], 06/22/2024 04:09:25 06/21/19 25 06/22/2024 CBC (INCL UDES DIFF/ PLT) basophils 1.1 % normal Not Available [facility] [address], [address], 06/22/2024 04:09:25 06/21/19 25 06/22/2024 VITAM IN B12 vitamin B12 426 pg/mL 200-11 00 normal Not Available [facility] [address] [address] , [place], [address], 06/22/2024 04:09:26 06/21/19 25 06/22/2024 T4, FREE T4, free 1.1 NG/dL 0.8-1. 8 normal Not Available [facility] [address] , [place], [address], 06/22/2024 04:09:27 06/21/1906/22/2024 VITAM IN D,25- OH,TO SAKINA,I A vitamin D,25-oh,tota l,ia 25 NG/mL 30-100 low Vitam in D Statu s 25-OH Vitam in D: Defic iency : <20 ng/mL Insuf ficie ncy: 20 - 29 ng/mL Optim al: > or = 30 ng/mL For 25-OH Vitam in D testi ng on patie nts on D2-wang pplem entat ion and patie nts for whom quant itati on of D2 and D3 fract ions is requi red, the [facility] eD(TM ) 25-OH VIT D, (D2,D 3), LC/MS /MS is recom horace d: order code 56784 (shavon ents >2yrs ). See Note 1 Note 1 For addit ional infor balbir hassan refer to http: //dena Vital stDia gnost ics.c om/fa q/FAQ 199 (This link is being provi ded for infor emely orozco/ walker duffy purpo ses only. ) Not Available [facility] [address] , [place], [address], 06/22/2024 04:09:27 07/24/19 24 07/24/2023 MAMMO , scree felicitas, digit al, bilat eral No observ ation record ed. [address], [place], [address], 07/24/2023 11:40:17 11/01/19 24 11/01/2023 US, abdom en No observ ation record ed. [address], [place], [address], 11/01/2023 09:25:56 Result Notes None recorded. Problems Name Problem SNOMED Code Status Onset Date Resolution Date Notes Provider Name and Address Organization Details Recorded Time Diverticul itis 390083534 Active 2017 Not Available [facility] 3 05:58:52 Vitamin D deficiency 98778008 Active 2021 Not Available [facility] 3 05:58:52 Disorder of bursa of shoulder region 91105068 Active Not Available [facility] 3 05:58:52 Fatigue 02245137 Active 2021 Not Available [facility] 3 05:58:52 Kidney stone 30674490 Active Not Available [facility] 3 05:58:52 Acute urinary tract infection 325342562 Active 2022 Freedom Frias MD [address], [place], [address] , [facility] 3 10:55:43 Obese class I 6906109646161 07 Active 2022 Freedom Frias MD [address], [place], [address] , [facility] 3 11:47:53 History of gallstones 012443944 Active 2023 Freedom Frias MD [address], [place], [address] , [facility] 4 11:49:48 Acute right otitis media 546415034 Active 2023 Freedom Frias MD [address], [place], [address] , [facility] 4 11:03:01 Impacted cerumen in right ear 5154389261282 103 Active 2023 TRINI Tejada [address], [place], [address] , [facility] [employer] [facility] [employer] 11:17:10 Problem Notes None recorded. Procedures Surgical History Date Name Laterality Status Provider Name and Address Organization Details Recorded Time 12/13/19 Medicare Wellness CPT Code, Initial completed Cinthia Mcelroy RN [place] [employer] [facility] [employer] 12/12/2022 11:37:35 04/16/20 21 Most Recent Mammogram completed Not Available [facility] 07/06/2022 05:54:09 03/15/20 21 Date of Last Pap Smear completed Not Available [facility] 07/06/2022 05:54:09 02/05/20 21 Most Recent Bone Density completed Not Available [facility] 07/06/2022 05:54:09 02/20/20 09 loop electrosurgical excision procedure completed Freedom Frias MD [address] [facility], [facility] [address], [place], [address], [facility] [employer] 11/23/2023 12:29:32 05/08/19 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 Medical Equipment None Reported. Allergies Allergen ID Allergen Name Allergen Category Reaction Reaction Severity Criticality Documentation Date Start Date Code Code System Note Provider Name and Address Organization Details Recorded Time 43567 Substance with sulfonami de structure and antibacte rial mechanism of action (substanc e) medicatio n rash Not available Not available 07/06/2022 46076 8003 SNOMED Not Available [facility] 3 06:04:11 Medications Name Sig Start Date Stop Date Status Note LastModified by Organization Details LastModified Time amoxicillin 500 mg capsule TAKE 1 CAPSULE BY MOUTH THREE TIMES A DAY FOR 10 DAYS 03/21 completed Not Available Not Available Not Available prednisone 10 mg tablet TAKE 1 TABLET BY MOUTH TWICE A DAY 03/21 completed Not Available Not Available Not Available ibuprofen 800 mg tablet TAKE 1 TABLET BY MOUTH EVERY 8 HOURS NEEDED WITH FOOD 06/10 completed Not Available Not Available Not Available hydrocodone 5 mg-acetamin ophen 325 mg tablet TAKE 1 TABLET BY MOUTH EVERY 6 HOURS NEEDED FOR PAIN 12/10 completed Not Available Not Available Not Available phenazopyri dine 200 mg tablet TAKE 1 TABLET BY MOUTH 3 TIMES A DAY NEEDED 06/10 completed Not Available Not Available Not Available oseltamivir 75 mg capsule Take 1 capsule every day by oral route for 10 days. 03/09 completed Not Available Not Available Not Available Cipro 500 mg tablet Take 1 tablet twice a day by oral route for 10 days. active Not Available Not Available No t Available Ear Drops (carbamide peroxide) 6.5 % INSTILL 5 DROPS INTO AFFECTED EAR TWICE A DAY 06/10 completed Not Available Not Available Not Available estradiol 0.01% (0.1 mg/gram) vaginal cream Insert 1g vaginally every other day for 2 weeks, then continue 1-2x/week thereafte r active Not Available Not Available No t Available methylpredn isolone 4 mg tablets in a dose pack Take by oral route as directed 02/26 completed Not Available Not Available Not Available Lomotil 2.5 mg-0.025 mg tablet Take by oral route one tablet q 4 hours prn for diarrhea active Not Available Not Available No t Available Vitamin D2 1,250 mcg (50,000 unit) capsule Take 1 capsule every week by oral route. 07/28 completed Not Available Not Available Not Available hydroxyzine HCl 10 mg tablet Take by oral route four times daily PRN for itching active Not Available Not Available No t Available ondansetron 4 mg disintegrat ing tablet DISSOLVE 1 TABLET ON TONGUE EVERY 8 HOURS NEEDED FOR NAUSEA AND VOMITING 12/10 completed Not Available Not Available Not Available Mucinex 600 mg tablet, extended release Take 1 tablet every 12 hours by oral route. 07/28 completed Not Available Not Available Not Available Vitamin D3 25 mcg (1,000 unit) capsule Take by oral route. 2016 active Not Available Not Available Not Avai lable nitrofurant oin monohydrate /macrocryst als 100 mg capsule TAKE 1 CAPSULE BY MOUTH AFTER INTERCOUR SE active Not Available Not Available No t Available Afluria Quad 60 mcg (15 mcg x 4)/0.5 mL intramuscul ar susp. 12/13 completed Not Available Not Available Not Available Vitals Date Recorded Body height Body mass index (BMI) Body weight Heart rate Body temperature Oxygen saturation Oxygen saturation in Arterial blood by Pulse oximetry Systolic blood pressure Diastolic blood pressure Provider Name and Address Organization Details Last Updated DateTime 4 154.94 cm 32.3 kg/m2 74240.3 g 84 /min 97.5 [degF] 97 % 97 % 130 mm[Hg] 78 mm[Hg] MARLON Sawant [facility] 4 11:39:42 Date Recorded Body height Body mass index (BMI) Body weight Heart rate Body temperature Oxygen saturation Oxygen saturation in Arterial blood by Pulse oximetry Systolic blood pressure Diastolic blood pressure Provider Name and Address Organization Details Last Updated DateTime 4 154.94 cm 30.4 kg/m2 58153.3 7 g 83 /min 97.6 [degF] 98 % 98 % 130 mm[Hg] 72 mm[Hg] MARLON Sawant [facility] 4 11:27:23 Date Recorded Body height Body mass index (BMI) Body weight Body temperature Provider Name and Address Organization Details Last Updated DateTime 03/05/2024 154.94 cm 30 kg/m2 73514.19 g 97.9 [degF] Dedra Rutherford RN [facility] 03/05/2024 10:55:52 Date Recorded Body height Body mass index (BMI) Body weight Body temperature Provider Name and Address Organization Details Last Updated DateTime 03/21/2024 154.94 cm 30.4 kg/m2 81438.65 g 97.7 [degF] Dedra Rutherford RN [facility] 03/21/2024 15:47:29 Date Recorded Body height Body mass index (BMI) Body weight Heart rate Body temperature Oxygen saturation Oxygen saturation in Arterial blood by Pulse oximetry Systolic blood pressure Diastolic blood pressure Provider Name and Address Organization Details Last Updated DateTime 5 153.67 cm 12.1 kg/m2 56372.3 2 g 79 /min 97 [degF] 93 % 93 % 138 mm[Hg] 78 mm[Hg] Litzy Stubbs [place] [facility] [place] [employer] [facility] 5 11:53:37 Social History Question Answer Notes LastModified by Organizat ion Details LastModified Time Tobacco Smoking Status Never Smoker Not Available [employer] 07/06/2022 05:53:19 Do You Have An Advance Directive? No [email or web address] Information not available 12/12/2022 Are You Blind Or Do You Have Difficulty Seeing? No [email or web address] Information not available 12/12/2022 What Is Your Level Of Caffeine Consumption? Moderate [id number] Information not available 07/06/2022 Are You Deaf Or Do You Have Serious Difficulty Hearing? No [email or web address] Information not available 12/12/2022 What Type Of Diet Are You Following? REGULAR [email or web address] Information not available 12/12/2022 Have There Been Any Changes To Your Family Or Social Situation? No [email or web address] Information not available 12/12/2022 Do You Use Insect Repellent Routinely? No [email or web address] Information not available 12/12/2022 Where Do You Live? [facility] [email or web address] Information not available 12/12/2022 Are You Able To Care For Yourself? Yes [email or web address] Information not available 12/12/2022 Are You Blind Or Do Yo Have Difficulty Seeing? No [email or web address] Information not available 12/12/2022 Are You Deaf Or Do You Have Serious Difficulty Hearing? No [email or web address] Information not available 12/12/2022 Live Alone Of With Others? With Others [email or web address] Information not available 12/12/2022 Do You Have A Medical Power Of Cloth Seconds Sorter? No Information not available 12/12/2022 What Was The Date Of Your Most Recent Tobacco Screening? 12/12/2022 [email or web address] Information not available 12/12/2022 Do You Have Any Pets? No [email or web address] Information not available 12/12/2022 What Is Your Relationship Status? [email or web address] Information not available 12/12/2022 Do You Use Your Seat Belt Or Car Seat Routinely? Yes [id number] Information not available 07/06/2022 Do You Have Smoke And Carbon Monoxide Detectors In Your Home? Yes [email or web address] Information not available 12/12/2022 Are You Passively Exposed To Smoke? No [email or web address] Information not available 12/12/2022 Are There Any Smokers In Your House? No [email or web address] Information not available 12/12/2022 Do You Use Sunscreen Routinely? No Information not available 12/12/2022 Do You Have Difficulty Walking Or Climbing Stairs? No [email or web address] Information not available 12/12/2022 Sex: Unknown Functional Status Question Answer Note LastModified by Organizat ion Details LastModified Time Do you use any illicit or recreational drugs? No [id number] Information not available 07/06/2022 Do you or have you ever used any other forms of tobacco or nicotine? No [id number] Information not available 07/06/2022 What is your level of alcohol consumption? Occasional [id number] Information not available 07/06/2022 Do you have transportation difficulties? No [id number] Information not available 12/12/2022 Are you able to walk? YESWOREST [id number] Information not available 12/12/2022 Do you have difficulty doing errands alone? No [email or web address] Information not available 12/12/2022 Are you able to care for yourself? Yes [email or web address] Information n ot available 12/12/2022 What is your occupation? retired [id number] Information not available 07/06/2022 Do you have difficulty dressing or bathing? No [email or web address] Information not available 12/12/2022 What is your exercise level? Occasional [id number] Information not available 07/06/2022 Mental Status Question Answer Note LastModified by Organization D etails LastModified Time Do you have difficulty concentrating, remembering or making decisions? No [email or web address] Information no t available 12/12/2022 Family History Relationship Description Onset Age of this Age Resolved Age Notes LastModified by Organization Details LastModified Time Father Malignant neoplasm of lung [id number] Not available 07/06/2022 05:54:14 Mother Alzheimer's disease [id number] Not available 07/06/2022 05:54:14 Maternal Grandmother Malignant tumor of colon [id number] Not available 07/06/2022 05:54:14 Notes:Mother 85 yea rs old Alzheimer's Father 58 years old [place] lung 1 Brothers 1 Living good health 2 Sisters 2 Living one COPD MGM - [place] Colon NO ENT Medical History Condition Response NERVE DISEASE N BLINDNESS N RHEUMATIC FEVER N KIDNEY STONES N BLADDER PROBLEMS N MRSA N OTHER # 1 N POLIO N LUNG DISEASE/DISORDER N HISTORY OF DRUG ABUSE N RADIATION / CHEMOTHERAPY N COPD N Other # 2 N BLOOD DISEASES N EAR OR HEARING PROBLEMS N MUMPS N SHINGLES N DEPRESSION (INCLUDING POST ) N BOWEL PROBLEMS N STROKE/TIA N ULCERS N BENIGN PROSTATIC HYPERPLASIA N MEASLES N HYPOTENSION N MYOCARDIAL INFARCTION N OBESITY N GERD/NAUSEA N ANEURYSM N URINARY/BLADDER/KIDNEY PROBLEMS N CORONARY ARTERY DISEASE (CAD) N ADDICTION CONCERNS N Impotence N ENDOMETRIOSIS N USE OF BLOOD THINNERS N SKIN PROBLEMS N GASTROINTESTINAL DISORDER N PERIPHERAL VASCULAR DISEASE N MUSCLE,JOINT OR BONE PROBLEMS N GASTROINTESTINAL BLEEDING N BLOOD CLOTS N ASTHMA N CATARACTS N ERECTILE DYSFUNCTION N VARICOSITIES N GI PROBLEMS N Low Testosterone N INFERTILITY N AIDS/HIV N CHEMOTHERAPY / RADIATION N LIVER DISEASE N MALE HYPOGONADISM N HYPERTENSION N Deficiency N TOURETTE'S N ANXIETY DISORDER N BLOOD TRANSFUSION N ANEMIA/BLOOD DISORDER N CHRONIC EAR INFECTIONS N BRONCHITIS N TUBERCULOSIS N GLAUCOMA N FOOT PROBLEM N DIVERTICULITIS N SLEEP APNEA N CHICKENPOX N INFECTIOUS DISEASE N PROSTATE N HEART ARRHYTHMIA N INSOMNIA N HIGH CHOLESTEROL / HYPERLIPIDEMIA N HYPERTHYROIDISM N EYE PROBLEMS N EDEMA N CHRONIC PAIN SYNDROME N HYPOTHYROIDISM N CONSTIPATION N CAROTID BLOCKAGE N BACK / NECK PROBLEMS N HAVE YOU BEEN HOSPITALIZED OR SEEN IN [facility] IN THE PAST YEAR ? N ATHEROSCLEROSIS N BREAST PROBLEMS N DIALYSIS N ECZEMA N OSTEOPOROSIS N ARTHRITIS N NO SIGNIFICANT PAST MEDICAL HISTORY N APPENDICITIS N DIABETES, TYPE N BAD TEETH N ENT N HEARTBURN / REFLUX N AUTISM SPECTRUM DISORDER (ASD) N HEPATITIS / LIVER DISEASE N GOUT N SLEEP DISORDER N ALZHEIMER'S DISEASE N Brain Problems N HERPES N DEMENTIA N SEIZURES/EPILEPSY N HEADACHES/MIGRAINES N VASCULAR DISEASE N PACEMAKER N Blood Disorder N DIZZINESS N KIDNEY DISEASE N HEART DISEASE/HEART PROBLEMS N MULTIPLE SCLEROSIS N CARDIAC ARRHYTHMIA N CANCER: SPECIFY N Gall Stones N ATRIAL FIBRILLATION N PULMONARY EMBOLISM N AUTOIMMUNE DISEASE N Gynecological History Statement/Question Response Abnormal Pap Y If Post Menopausal, Age at Menopause 50 Date of Last Colonoscopy Most Recent Bone Density 02/04/2021 Date of LMP Date of Last Pap Smear 03/15/2021 Current Control Method Menopause Age at Menarche 12 Most Recent Mammogram 04/16/2021 Breast Problems no Obstetrics History GPAL:G 2 P 2 0 0 2 Type Value Full Term 2 Living 2 Total 2 Immunizations Vaccine Type Date Status Note Provider Nam e and Address Organization Details Recorded Time Influenza, split virus, trivalent, preservative 3 completed Not Available [facility] 07/06/2022 06:03:56 COVID-19 Non-[place] Vaccine, Product Unknown 1 completed Not Available [facility] 07/06/2022 06:03:56 COVID-19 Non-US Vaccine, Product Unknown 1 completed Not Available [facility] 07/06/2022 06:03:56 Influenza, high-dose, trivalent, PF 4 completed Not Available [facility] 07/06/2022 06:03:56 Past Encounters Encounter ID Performer Location Encounter Start Date Encounter Closed Date Diagnosis/Indication Diagnosis SNOMED-CT Code Diagnosis ICD10 Code Diagnosis Note [id number] Freedom Frias MD [facility] Internal Med [address] [address] 12/16/2020 00:00:00 12/16/2020 10:32:20 [id number] [facility] _ATHENA_M IGRATION_ DEFAULT_1 _1 , 03/15/2021 00:00:00 03/15/2021 14:26:22 [id number] Freedom Frias MD [facility] Internal Med [place] [address] [address] 12/13/2021 00:00:00 12/13/2021 11:46:48 [id number] Freedom Frias MD [facility] Internal Med [place] [address] [address] 12/12/2022 11:18:30 12/12/2022 11:55:51 Adult health examination 784117420 Z00.00 Screening for disorder 011002679 Z13.9 Diverticulitis 074238352 K57.92 Kidney stone 56606480 N2 0.0 Obese class I 2352349732 18626 E66.9 Vitamin D deficiency 347 05070 E55.9 [id number] Freedom Frias MD [facility] Internal Med [address] [address] 06/12/2023 11:23:26 06/12/2023 12:03:47 Diverticulitis 867666428 K57.92 Obese class I [id number] 50892 E66.9 [id number] Freedom Frias MD [facility] Internal Med [address] [address] 12/11/2023 11:20:52 12/11/2023 11:56:56 Diverticulitis 897086699 K57.92 History of gallstones 40 4404728 Z87.19 Obese class I 7765048172 83475 E66.9 [id number] Everardo Martinez MD [facility] ENT [place] [address] [place] [address] 03/05/2024 10:46:39 03/05/2024 11:19:00 Impacted cerumen in right ear 8900119768 141342 H61.21 cerumen impaction unsuccessf ully relieved with lavage and a curette device. Patient will be placed on Debrox drops and return in one-week for cerumen removal [id number] Everardo Martinez MD [facility] ENT [place] [address] [place] [address] 03/21/2024 15:35:19 03/21/2024 15:56:55 Impacted cerumen in right ear 2452393429 673738 H61.21 cerumen impaction successful ly removed with lavage [id number] Freedom Frias MD [facility] Internal Med [place] [address] [facility], [place] [address] [place] [address] 06/10/2024 11:18:03 06/10/2024 12:27:23 Obese class I 5265630170 78913 E66.9 Kidney stone 80022548 N2 0.0 Diverticulitis 301520139 K57.92 Screening for cardiovascular system disease 561273753 Z13.6 Fatigue 38386096 R53.83 R53.0 R53.1 R53.81 Vitamin D deficiency 347 98201 E55.9 Health Concerns Section Related Observation LastModified by Organization Detai ls LastModified Time None Recorded Concern Status LastModified by Organization Details LastModified Time None Recorded Advance Directives Directive N: Payers Encounter Date Sequence Insurance Name Policy Number Policy Banks Covered Member ID Banks Member ID Guarantor Name 06/12/2023 1 [place] Aiyana L Elizabeth [id number] Aiyana L Shani 06/12/2023 2 [employer] [place] [place] (MEDICARE SUPPLEMENT) Aiyana L Elizabeth [id number] Aiyana L Shani 12/11/2023 1 [place] Aiyana L Shani [id number] Aiyana L Shani 12/11/2023 2 [employer] [place] (MEDICARE [place]PPLE[place]) Aiyana L Elizabeth [id number] Aiyana L Elizabeth 03/05/2024 1 [place] Aiyana L Shani [id number] Aiyana L Elizabeth 03/05/2024 2 [employer] [place] (MEDICARE [place]PPLE[place]) Aiyana L Shani [id number] Aiyana L Elizabeth 03/21/2024 1 [place] Aiyana L Elizabeth [id number] Aiyana L Shani 03/21/2024 2 [employer] [place] (MEDICARE [place]PPLE[place]) Aiyana L Shani [id number] Aiyana L Shani 06/10/2024 1 [place] Aiyana L Shani [id number] Aiyana L Elizabeth 06/10/2024 2 [employer] [place] (MEDICARE SUPPLEMENT) Aiyana L Shani [id number] Aiyana L Shani Notes Date Note Type Note Provider Name and Address Organization Details Recorded Time 06/12/2023 text/html Patient Name: Aiyana McleodDate Of Service: Monday ( 06.12.2023 ): 1955 Age: 67 Vital Signs:Blood Pressure: Sitting Rt. Arm 130/78Pulse: Sitting 84 /min and RegularRespiratory Rate: 12Height 61 in or 1.5 mWeight 171 lb or 77.6 kgBMI 32.3Temperature: 97.5 F or 36.4 CPulse Oximetry: 97 % at rest on no oxygen Chief Complaint: Addressed in HPI Problems or conditions discussed in the HPI were the only ones reviewed during the encounter.Only social and family history addressed in the HPI were reviewed during this encounter. Attendant(s): NoneConstitutional and Systemic Symptoms:none Medication Reconciliation: from medication list. Lvivtkjqyky66/16/2022: Negative Cologuard repeat in three years 06/03/2022: Negative mammogram repeat in one year History of Present Illness #1. Hx of diverticulitis. No interval complaints of pain, fever, chills or other constitutional symptoms. There has been no change in bowel habits or frequency. No change in the caliber of the stool. #2. Hx of obesity. Currently Class 1 Obesity BMI 30-34.99. Has tried numerous dietary support and supplements with no benefit. Instructed on the health consequences of the obese status particularly cancer - diabetes and heart disease. Discussed new modalities of weight loss including GLP-1 medications that are used to treat diabetes. Potential candidate for bariatric surgery: No. Wishes to be evaluated by Dietary: No and was offered to be evaluated and instructed by superintendent board mill on weight loss diet. Active Medication ListVitamin D 3000 IU Daily Adverse Drug Reactions ReviewedSulfa Drugs Rash Social HistorySOCIAL HISTORY:Does not smoke cigarettes. Drinking Hx: 1 Cup of coffee per day, < 6 cans of softdrinks per day.Exercise: InfrequentlySexual Hx: Sexually ActiveFamily HistoryFAMILY HISTORY:Mother 85 years old Alzheimer'sFather 58 years old [place] lung1 Brothers 1 Living good health2 Sisters 2 Living one COPDMGM - [place] Colon Freedom Frias MD [address] [address], [place], [address], [place] - [facility] 06/12/2023 12:01:04 12/11/2023 text/html Patient Name: Aiyana Ingram Of Service: Monday ( 12.11.2023 ): 1955 Age: 68 There has been approximately a 10 lb weight loss since 06/12/2023. This represents approximately a 5.8% change in weight. Weight change attributable to lifestyle changes. Vital Signs:Blood Pressure: Sitting Rt. Arm 130/72Pulse: Sitting 83 /min and RegularRespiratory Rate: 14Height 61 in or 1.5 mWeight 161 lb or 73.0 kgBMI 30.4Temperature: 97.6 F or 36.4 CPulse Oximetry: 98 % at rest on no oxygen Chief Complaint: Addressed in HPI Problems or conditions discussed in the HPI were the only ones reviewed during the encounter.Only social and family history addressed in the HPI were reviewed during this encounter. Attendant(s): NoneConstitutional and Systemic Symptoms:none Medication Reconciliation: from medication list. Iiccdoxflfv30/16/2022: Negative Cologuard repeat in three years 06/03/2022: Negative mammogram repeat in one year 11-01-2023: Ultrasound of the abdomen reveals probable fatty infiltration of the liver with probable small gallstone. Minimal prominence of the common bile duct noted nonspecific. History of Present Illness #1. History of recent cholecystectomy for symptomatic gallstones. Clinically doing well. Is approximately one month out from laparoscopic cholecystectomy. Clinically doing well. No history of any recurrent pain or discomfort.: #2. Hx of diverticulitis. No interval complaints of pain, fever, chills or other constitutional symptoms. There has been no change in bowel habits or frequency. No change in the caliber of the stool. #3. Hx of obesity. Currently Class 1 Obesity BMI 30-34.99. Has tried numerous dietary support and supplements with no benefit. Instructed on the health consequences of the obese status particularly cancer - diabetes and heart disease. Discussed other modalities of weight loss no. Potential candidate for bariatric surgery: No. Wishes to be evaluated by Dietary: No and was offered to be evaluated and instructed by superintendent board mill on weight loss diet. Active Medication ListVitamin D 3000 IU DailyEstradiol .1 MG/G CREAM Apply DailyMacrobid 25; 75 MG; MG CAPSULE One After Hana Adverse Drug Reactions ReviewedSulfa Drugs Rash Vaccination and Gwcrnmovjlvq1295-08 Covid Brekvw9677-04 Prevnar 20 Ed Surgical Jfxvwhe9589-45 Lap Cholecystectomy Preventative Xwvtdgy3807/24/2023 MAMMOGRAM 8/ ALBUMIN 4.2 G/DL N012/21/2021 COLOGUARD 5002/04/2021 DEXA SCAN /01/2012 COLONOSCOPY 11/13/2021 Social HistorySOCIAL HISTORY:Does not smoke cigarettes. Drinking Hx: 1 Cup of coffee per day, < 6 cans of softdrinks per day.Exercise: InfrequentlySexual Hx: Sexually ActiveFamily HistoryFAMILY HISTORY:Mother 85 years old Alzheimer'sFather 58 years old [place] lung1 Brothers 1 Living good health2 Sisters 2 Living one [facility] [place] [facility] [place] Colon Freedom Frias MD [address], [employer], [place], [address], [employer] 12/11/2023 11:53:50 03/05/2024 text/html This patient has a past medical history significant for obesity, gallstones, diverticulitis, and vitamin-D deficiency who presents to the office with a complaint of right muffled hearing and pain onset approximately one-week ago. She states after she had taken a shower her symptoms had began. She did notify her PCP who had prescribed amoxicillin over the phone. TRINI Tejada [address], [employer], [place], [address], [employer] [facility] [employer] 03/05/2024 11:18:22 03/21/2024 text/html this patient pre sents for 2 week follow-up for right cerumen impaction removal. She reports that she has been using the Debrox drops as prescribed. Denies any otalgia. Does report hearing is being affected on that right side. TRINI Tejada [address], [employer], [place], [address], [facility] [employer] [facility] [employer] 03/21/2024 15:56:19 06/10/2024 text/html Patient Name: Aiyana Ingram Of Service: Monday ( 06.10.2024 ): 1955 Age: 68 There has been approximately a 2 lb weight gain since 12/11/2023. This represents approximately a 1.2% change in weight. Weight change attributable to lifestyle changes. Vital Signs:Blood Pressure: Sitting Rt. Arm 138/78Pulse: Sitting 79 /min and RegularRespiratory Rate: 16Height 60.5 in or 1.5 mWeight 163 lb or 73.9 kgBMI 31.3Temperature: 97 F or 36.1 CPulse Oximetry: 93 % at rest on no oxygen Chief Complaint: Addressed in HPI Problems or conditions discussed in the HPI were the only ones reviewed during the encounter.Only social and family history addressed in the HPI were reviewed during this encounter. Attendant(s): NoneConstitutional and Systemic Symptoms:none Medication Reconciliation: from medication list. [id number]: Ultrasound of the abdomen reveals probable fatty infiltration of the liver with probable small gallstone. Minimal prominence of the common bile duct noted nonspecific. History of Present Illness #1. Hx of diverticulitis. No interval complaints of pain, fever, chills or other constitutional symptoms. There has been no change in bowel habits or frequency. No change in the caliber of the stool. #2. Renal Calculi: History of bilateral renal calculi. No interval complaints of any flank pain, nausea, vomiting, or gross hematuria. No other urinary track symptoms or signs of urinary infection. #3. Hx of obesity. Currently Class 1 Obesity BMI 30-34.99. Has tried numerous dietary support and supplements with no benefit. Instructed on the health consequences of the obese status particularly cancer - diabetes and heart disease. Discussed other modalities of weight loss no . Potential candidate for bariatric surgery: No. Wishes to be evaluated by Dietary: No and was offered to be evaluated and instructed by superintendent board mill on weight loss diet. Active Medication ListVitamin D 3000 IU DailyMacrobid 25; 75 MG; MG CAPSULE One After Hana Adverse Drug Reactions ReviewedSulfa Drugs Rash Vaccination and Immunization(X) 2012-02 PREVNAR 20 ED PREVNAR 20 Needed(X) 2020- COVID PFIZER Surgical Exrgqwg1667-51 Lap Cholecystectomy Preventative Testing( ) 07/24/2023 Mammogram 07/23/2025( ) 12/27/2022 Albumin 4.2 G/DL N( ) 12/21/2021 Cologuard 12/21/2024(X) 02/04/2021 DEXA Scan 02/04/2023 Social HistorySOCIAL HISTORY:Does not smoke cigarettes. Drinking Hx: 1 Cup of coffee per day, < 6 cans of softdrinks per day.Exercise: InfrequentlySexual Hx: Sexually ActiveFamily HistoryFAMILY HISTORY:Mother 85 years old Alzheimer'sFather 58 years old [place] lung1 Brothers 1 Living good health2 Sisters 2 Living one COPDMGM - [place] Colon Freedom Frias MD [address] [facility] [address], [place], [address], [facility] [employer] 06/10/2024 12:17:20 OBGyn Episode No OBEpisode recorded.
--- OUTSIDE RECORDS SUMMARY | 2024-09-27 09:01 | XMS_ITS | CONTINUITY OF CARE DOCUMENT ---
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
== END 2024-09-27 08:56 | disposition home or self-care (01) ==
LOC: ANHIMG 08:58
PROVIDERS: PCP Internal Medicine; Visit Provider Internal Medicine
DX: Z12.31 Encounter for screening mammogram for malignant neoplasm of breast (principal)
CPT/HCPCS: 77063; 77067

== ENCOUNTER 2024-12-23 09:08 | Outpatient (CLI) | payer MEDICARE, OTHER, SELFPAY ==
--- NOTE | ~2024-12-23 | DEXA_ITS ---
Bone Density Report Name: STEPHANIE VALENCIA Age: 69 Sex: Female Ethnicity: White Date of : 1955 Indication: postmenopausal; screening for osteoporosis; height loss; Referring Provider: NEFTALY, FREEDOM Terry Study: Bone densitometry was performed. Exam Date: December 23, 2024 Accession number: [id number] Bone Density: Region BMD T-score Z-score Classification AP Spine(L1-L4) 1.096 0.4 2.4 Normal Femoral Neck (Left) 0.789 -0.5 1.2 Normal Total Hip (Left) 1.038 0.8 2.2 Normal Femoral Neck (Right) 0.758 -0.8 0.9 Normal Total Hip (Right) 1.016 0.6 2.0 Normal Total Hip Mean 1.027 0.7 2.1 Normal World Health Organization criteria for BMD impression classify patients as: Normal (T-score at or above -1.0), Osteopenia (T-score between -1.0 and -2.5), or Osteoporosis (T-score at or below -2.5). 10-year Fracture Risk: FRAX not reported because: All T-scores for Spine Total, Hip Total, Femoral Neck at or above -1.0 Previous Exams: Region Exam Age BMD T-score BMD Change BMD Change Date g/cm2 vs Baseline vs Previous Total Hip(Left) 12/23/2024 69 1.038 0.8 0.005 (0.5%) 0.005 (0.5%) 02/04/2021 65 1.033 0.7 Total Hip(Right) 12/23/2024 69 1.016 0.6 0.056 (5.8%)* 0.056 (5.8%)* 02/04/2021 65 0.960 0.1 *Denotes significance at 95% confidence level, LSC for Total Hip = 0.027 g/cm2 Clinical Information Provided by Patient: Has used the following medications: Vitamin D Patient maximum height was 62.0 Menopause Age: 50 Drinks caffeinated beverages Onset of menses at age 12 Number of children 2 Impression: The patient has normal bone mass. No significant bone loss was observed. Discussion: BONE DENSITY IS ABOVE THE MINIMUM DESIRABLE LEVEL AT ALL SKELETAL SITES TESTED. This patient?s bone mineral density is above the minimum desirable level (T-score -1.0 or better) at all sites measured. The patient should follow a healthful lifestyle (good nutrition with adequate calcium and vitamin D, and appropriate weight-bearing exercise). Follow-Up: Consider repeating this study in 5 years or sooner if there is some new clinical indication. Reported by: NEO on 12/23/2024 9:47:00 AM. Reviewed, dictated and finalized at location A.
== END 2024-12-23 09:09 | disposition home or self-care (01) ==
LOC: ANHIMG 09:09
PROVIDERS: PCP Internal Medicine; Visit Provider Internal Medicine
DX: Z78.0 Asymptomatic menopausal state (principal)
CPT/HCPCS: 77080